=== PATIENT | female | born 1965 | race Caucasian/White ===

== ENCOUNTER 2021-08-30 13:10 | Emergency (ER) | payer SELFPAY ==
[2021-08-30] VITALS (17 sets, daily range): BP systolic 106–162; BP diastolic 79–111; PULSE 81–116; RESP 13–39; TEMP 37.1; O2SAT 96–100
--- NOTE | 2021-08-30 13:15 | RT.EKG_ITS ---
APPROVED REPORT Exam: Resting ECG Reason for Exam: back pain Patient Location: E HR:111 bpm ECG Measurements Heart Rate 111 AXIS AL 151 P 75 QRSd 82 QRS 83 QT 335 T 24 QTc 456 Conclusion Sinus tachycardia...rate> 99 Sinus. No STEMI. I have reviewed and interpreted ECG and agree with software generated interpretation.
--- NOTE | 2021-08-30 13:41 | W.ED.GENAD ---
Discharge Plan Disposition Patient Disposition: HOME Condition: Stable Discharge Details Clinical Impression: Pyelonephritis Primary Care Provider: Rosa Vasquez ED Provider: Janey Brown Home Meds and New Rx's Prescriptions: New cephalexin 500 mg capsule 500 mg PO BID 14 Days Qty: 28 RF: 0 Continued naproxen sodium [Aleve] 220 MG capsule 220 mg PO DAILY PRNRF: 0 Discharge Instructions Instructions: Urinary Tract Infection in Women (ED) Additional Instructions: Drink plenty of fluids and get plenty of rest. Alternate tylenol and motrin as needed and directed for pain. A prescription for the antibiotic Keflex has been sent electronically to your pharmacy. Take this as directed until finished. Follow-up with your primary care doctor in 1 week. Return to the emergency department with any worsening or new concerning symptoms. Discharge Data Discharge Physician: Janey Brown Medical Decision Making 55yo F who presents to the ED w/ a complaint of left mid and lower back pain worse with movement and vomiting and diarrhea starting today. EKG done on arrival due to patient's age and family history of DC which noted a rate of 111, sinus, no STEMI, nondiagnostic. Patient appears somewhat uncomfortable but nontoxic. She has reproducible left mid and lower back pain with movement and palpation. Lungs clear. No focal deficit Differential diagnosis includes UTI, pyelonephritis, muscle strain, pinched nerve. Presentation does not appear consistent with ACS or PE, but will obtain screening labs, D-dimer, urinalysis and give IV Decadron, Toradol, Valium, fluids and reassess. Labs reviewed. White blood cell count 6. Hemoglobin 15. D-dimer elevated at 1104. Electrolytes normal. Troponin negative. Urinalysis notes findings consistent with UTI. Presentation likely due to pyelonephritis. Will obtain CT chest abdomen pelvis. CT chest reviewed and notes questionable infiltrate left lingula but could be sequelae of previous infection. As she has no complaint of cough, chest pain or shortness of breath, does not appear consistent with pneumonia. CT abdomen findings consistent with pyelonephritis. Patient reassessed and she is pain-free and feels comfortable going home. A dose of Keflex was given here as well as for home and prescription sent electronically to her pharmacy. Advised to follow up with the primary care doctor for re-evaluation. Usual and customary return precautions given prior to discharge. Medical Records Medical records reviewed: Yes I reviewed the patient's medical records. Imaging Data Radiologic Study: Radiologist's impression: CTA Chest With Contrast Exam date and time: 08/30/2021 2:48 PM Age: 55 years old Clinical indication: Other: Lt sided upper back pain, UTI; Other: Lt sided upper back pain, R/O pyelo, pe, pna TECHNIQUE: Imaging protocol: Computed tomographic angiography of the chest with contrast. 3D rendering (Not supervised by radiologist): MIP and/or 3D reconstructed images were created by the technologist. Radiation optimization: All CT scans at this facility use at least one of these dose optimization techniques: automated exposure control; mA and/or kV adjustment per patient size (includes targeted exams where dose is matched to clinical indication); or iterative reconstruction. Contrast material: OMNIPAQUE 350; Contrast volume: 100 ml; Contrast route: INTRAVENOUS (IV); COMPARISON: No relevant prior studies available. FINDINGS: Pulmonary arteries: Normal. No pulmonary emboli. Aorta: No aortic aneurysm. No aortic dissection. Lungs: Lungs volumes are low. Confluent ground-glass density in the left lingular segment (image 374 series 9) suspicious of mild infiltrate. Mild peribronchial thickening. Mild mosaic like attenuation in the right upper lung lobe (image 184 series 12) and could be due to small airway reactive disease or bronchiolitis. Pleural spaces: No pneumothorax. No pleural effusion. Heart: No cardiomegaly. No pericardial effusion. Lymph nodes: . No enlarged lymph nodes. Bones/joints: . No acute fracture. Soft tissues: Unremarkable. IMPRESSION: 1. Ground-glass density in the left lingular segment consistent with mild infiltrate and could be sequela of viral or atypical infection. Additionally mild peribronchial thickening and mild mosaic like density in the right upper lung suspicious of small airway reactive process or bronchiolitis. 2. No pulmonary embolism or aortic dissection. CT Angiography Abdomen With Contrast Exam date and time: 08/30/2021 2:48 PM Age: 55 years old Clinical indication: Other: Lt sided upper back pain, UTI; Other: Lt sided upper back pain, R/O pyelo, pe, pna TECHNIQUE: Imaging protocol: Computed tomographic angiography images of the abdomen with intravenous contrast material. 3D rendering (Not supervised by radiologist): MIP and/or 3D reconstructed images were created by the technologist. Radiation optimization: All CT scans at this facility use at least one of these dose optimization techniques: automated exposure control; mA and/or kV adjustment per patient size (includes targeted exams where dose is matched to clinical indication); or iterative reconstruction. Contrast material: OMNIPAQUE 350; Contrast volume: 100 ml; Contrast route: INTRAVENOUS (IV); COMPARISON: No relevant prior studies available. FINDINGS: Lungs: Confluent ground-glass density in the left lingular segment suspicious of mild infiltrate. Mediastinum: Small hiatal hernia. Aorta: No aortic aneurysm. No aortic dissection. Celiac trunk and mesenteric arteries: No occlusion or significant stenosis. Renal arteries: No occlusion or significant stenosis. Liver: Normal. No mass. Gallbladder and bile ducts: Cholecystectomy. Pancreas: Normal. No ductal dilation. Spleen: Normal. No splenomegaly. Adrenals: Normal. No mass. Kidneys and ureters: 1.8 cm bulky nonobstructive nephrolithiasis in the right upper pole kidney. Enhancement of urothelium in the right proximal ureter and right renal pelvis. Trace hypoenhancing striated nephrogram in the right kidney (image 26 series 6) suspicious of trace pyelonephritis. Correlate with urinalysis to exclude urinary tract infection. Mild right hydroureter, likely due to mildly distended urinary bladder or less likely due to ureterovesical reflux. Stomach and bowel: Rectosigmoid and most of the colon are under distended. Mild fluid in the ascending, transverse colon. No significant mucosal thickening to suggest acute colitis. Small bowel within normal limits. Appendix: Appendix is unremarkable (image 48 series 4). Lymph nodes: No enlarged lymph nodes. Intraperitoneal space: No free air. No significant fluid collection. Bones/joints: Moderate loss of disc height at L5-S1. Mild posterior osteophyte spurring at L5-S1. Soft tissues: Small fat containing umbilical hernia. IMPRESSION: 1. Enhancement of urothelium in the right renal pelvis and proximal right ureter suspicious of urinary tract infection. Additionally, trace striated nephrogram in the right kidney suspicious of trace right pyelonephritis. Correlate with urinalysis. 2. Bulky nonobstructing nephrolithiasis of the right kidney. 3. Under distended large bowel with fluid in the proximal large bowel. Correlate with any diarrheal illness. No significant mucosal thickening or pericolonic stranding to suggest colitis. Lab Data Lab results reviewed: Yes I reviewed the patient's lab results. Labs: 08/30/21 14:35 Urine - Reflex from Ua Urine Culture - Pending Laboratory Tests Range/Units 08/30/21 08/30/21 08/30/21 13:35 13:35 13:53 WBC (4.4-10.8) 10^3/uL 6.21 RBC (3.93-5.22) 10^6/uL 5.02 Hgb (11.2-15.7) g/dL 15.9 H Hct (36.0-46.0) % 46.6 H MCV (80-95) fL 92.8 MCH (27.0-33.0) pg 31.7 MCHC (32.0-36.0) % 34.1 RDW (11.7-14.6) % 11.9 Plt Count (130-400) 10^3/uL 250 MPV (8.0-11.0) fL 9.3 Immature Gran % 0.3 Neutrophils % 71.4 Lymphocytes % 18.8 Monocytes % 5.8 Eosinophils % 3.5 Basophils % 0.2 Nucleated RBC % % 0 Absolute Neutrophils (1.2-6.7) 10^3/uL 4.43 Absolute Lymphocytes (1.2-3.4) 10^3/uL 1.17 L Absolute Monocytes (0.1-0.8) 10^3/uL 0.36 Absolute Eosinophils (0.0-0.7) 10^3/uL 0.22 Absolute Basophils (0.0-0.2) 10^3/uL 0.01 D-Dimer Cancelled Sodium (136-145) mmol/L 140 Potassium (3.5-5.1) mmol/L 3.9 Chloride (98-107) mmol/L 103 Carbon Dioxide (21.0-32.0) mmol/L 24.8 Anion Gap (3-11) mmol/L 12.2 H BUN (7-18) mg/dL 13 Creatinine (0.55-1.02) mg/dL 0.8 Estimated GFR/1.73 m2 (mL/min/1.73m2) >= 60.00 Glucose (74-106) mg/dL 94 Calcium (8.5-10.1) mg/dL 9.0 Magnesium (1.8-2.4) mg/dL 2.0 Total Bilirubin (0.2-1.0) mg/dL 0.3 AST (15-37) U/L 22 ALT (14-59) U/L 29 Alkaline Phosphatase (46-116) U/L 91 Troponin I (<0.06) ng/mL < 0.05 Total Protein (6.4-8.2) g/dL 8.0 Albumin (3.4-5.0) g/dL 4.2 Urine Color (Yellow) Urine Clarity (Clear) Urine pH (5-8) Ur Specific [place] (1.005-1.025) Urine Protein (Negative) mg/dL Urine Ketones (Negative) mg/dL Urine Blood (Negative) Urine Nitrite (Negative) Urine Bilirubin (Negative) Urine Urobilinogen (Up TO 0.2) EU/dL Ur Leukocyte Esterase (Negative) Urine RBC (0-2) HPF Urine WBC (0-5) HPF Ur Epithelial Cells (Negative) HPF Urine Crystals (Negative) HPF Urine Bacteria (Negative) HPF Urine Casts (Negative) LPF Urine Mucus (Negative) Ur Culture Indicated? Urine Glucose (Negative) mg/dL Range/Units 08/30/21 08/30/21 14:20 14:35 WBC (4.4-10.8) 10^3/uL RBC (3.93-5.22) 10^6/uL Hgb (11.2-15.7) g/dL Hct (36.0-46.0) % MCV (80-95) fL MCH (27.0-33.0) pg MCHC (32.0-36.0) % RDW (11.7-14.6) % Plt Count (130-400) 10^3/uL MPV (8.0-11.0) fL Immature Gran % Neutrophils % Lymphocytes % Monocytes % Eosinophils % Basophils % Nucleated RBC % % Absolute Neutrophils (1.2-6.7) 10^3/uL Absolute Lymphocytes (1.2-3.4) 10^3/uL Absolute Monocytes (0.1-0.8) 10^3/uL Absolute Eosinophils (0.0-0.7) 10^3/uL Absolute Basophils (0.0-0.2) 10^3/uL D-Dimer 1104 H Sodium (136-145) mmol/L Potassium (3.5-5.1) mmol/L Chloride (98-107) mmol/L Carbon Dioxide (21.0-32.0) mmol/L Anion Gap (3-11) mmol/L BUN (7-18) mg/dL Creatinine (0.55-1.02) mg/dL Estimated GFR/1.73 m2 (mL/min/1.73m2) Glucose (74-106) mg/dL Calcium (8.5-10.1) mg/dL Magnesium (1.8-2.4) mg/dL Total Bilirubin (0.2-1.0) mg/dL AST (15-37) U/L ALT (14-59) U/L Alkaline Phosphatase (46-116) U/L Troponin I (<0.06) ng/mL Total Protein (6.4-8.2) g/dL Albumin (3.4-5.0) g/dL Urine Color (Yellow) Yellow Urine Clarity (Clear) Cloudy Urine pH (5-8) 5.5 Ur Specific [place] (1.005-1.025) 1.025 Urine Protein (Negative) mg/dL 30 H Urine Ketones (Negative) mg/dL Negative Urine Blood (Negative) Small H Urine Nitrite (Negative) Positive H Urine Bilirubin (Negative) Negative Urine Urobilinogen (Up TO 0.2) EU/dL 0.2 Ur Leukocyte Esterase (Negative) Large H Urine RBC (0-2) HPF 3-5 H Urine WBC (0-5) HPF >50 H Ur Epithelial Cells (Negative) HPF Few Urine Crystals (Negative) HPF Negative Urine Bacteria (Negative) HPF Many Urine Casts (Negative) LPF 3-5 Fine Granular Urine Mucus (Negative) Trace Ur Culture Indicated? Yes Urine Glucose (Negative) mg/dL Negative ECG Data Attestation: I personally reviewed and interpreted this ECG (s) as follows: Interpretation: Rate of 111, sinus, no acute ST elevation or depression. MI 151. QRS 82. QTc 456. HPI General Mode of arrival: ambulatory. Date/Time Provider Initiated Documentation: 08/30/21 13:26. Limitations to Documentation: no limitations. Information obtained by: patient. HPI Narrative: Patient is a 55-year-old female who presents with left-sided back pain from her mid to her lower back that started while cutting a potato at home today. Patient states the pain is worse with movement of her upper body and head. She has not taken any medication for pain. She denies any specific injury but states she did move recently and has been moving heavy objects at times. She states she did vomit and had one episode of watery brown diarrhea today. She denies any chest pain, difficulty breathing, abdominal pain or urinary symptoms. She denies any fever, recent new medications or antibiotics. Related Data Home Medications Medication Instructions Recorded Confirmed naproxen sodium [Aleve] 220 mg PO DAILY PRN 08/01/16 08/30/21 cephalexin 500 mg PO BID 14 Days #28 cap 08/30/21 Previous Rx's Medication Instructions Recorded cephalexin 500 mg PO BID 14 Days #28 cap 08/30/21 Allergies Allergy/AdvReac Type Severity Reaction Status Date / Time oxycodone Allergy Itching Unverified 08/30/21 13:28 General Stated Complaint: Nk/Back Pain KEITH: 3 Review of Systems All systems reviewed & are unremarkable except as noted in HPI and below Constitutional Constitutional: Reports as per HPI, Denies chills and Denies fever(s) Eyes Eyes: Denies blurry vision ENT Ears, Nose, Mouth, and Throat: Denies dizziness, Denies sore throat and Denies throat swelling Cardiovascular Cardiovascular: Denies chest pain and Denies dyspnea Respiratory Respiratory: Denies cough and Denies dyspnea Gastrointestinal Gastrointestinal: Denies abdominal pain, Denies diarrhea and Denies vomiting Genitourinary Genitourinary: Denies hematuria and Denies dysuria Musculoskeletal Musculoskeletal: Reports back pain and Denies numbness Integumentary/Breasts Skin/Breast: Denies lesions and Denies rash Neurologic Neurologic: Denies dizziness, Denies localized weakness and Denies numbness Allergic/Immunologic Allergic/Immunologic: Denies throat swelling [facility] Active Problem List (Updated 08/30/21 @ 16:33 by Janey Brown DO) Pyelonephritis (Acute) Medical History (Updated 08/30/21 @ 16:33 by Janey Brown DO) No significant past medical history Surgical History (Updated 08/30/21 @ 13:59 by Janey Brown DO) Cholecystectomy 2004 Social History Smoking/Tobacco Use Status: Current-Occasional Smoking risk assessment performed?: Yes Alcohol Intake: current Alcohol Intake frequency: holidays/special occasions only Drug use: Never Substance use type: does not use Do you feel safe at home: Yes Do you feel safe in your relationship?: Yes Exam Const General: cooperative and no acute distress [facility] Head: normal to inspection Face and sinus: normal facial exam Eyes General: appearance normal, both eyes and all related structures EOM: EOM intact bilaterally Neck Neck: normal visual inspection and No submandibular swelling Lymphatic: no lymphadenopathy noted Chest Chest: normal inspection of the chest and no tenderness Resp Effort & Inspection: normal respiratory effort and able to speak in complete sentences Auscultation: clear to auscultation bilaterally Cardio Rate: regular rate Rhythm: regular rhythm GI Inspection: normal to inspection Palpation: soft, not firm, not rigid and nontender Auscultation: normal bowel sounds Back/Spine/Pelvis Thoracic/Lumbar Spine: No thoracic spinal tenderness and No lumbar spinal tenderness Back/spine/pelvis image: 1. Tenderness to palpation left paraspinal muscles within the thoracic and lumbar region. Skin General skin exam: no rashes or lesions noted Neuro General: patient alert, patient awake and patient oriented x3 Cognition: normal cognition Speech: speech normal Motor: muscle tone normal throughout Sensory Exam: no sensory deficits noted Extrem General: normal to inspection, full ROM, capillary refill normal, no calf tenderness bilaterally and no edema Psych Appearance: grossly normal Mental Status: mental status grossly normal Speech and Movement: speech and movement normal Affect: normal affect Course Vital Signs Vital signs: Vital Signs Pulse 99 H 08/30/21 13:16 Respiratory Rate 18 08/30/21 13:16 Blood Pressure 145/80 H 08/30/21 13:16 Pulse Oximetry 98 08/30/21 13:16 Pulse 116 H 08/30/21 13:32 Respiratory Rate 20 08/30/21 13:32 Respiratory Effort Non-Labored 08/30/21 13:29 Blood Pressure 141/101 H 08/30/21 13:32 Blood Pressure Position Sitting 08/30/21 13:16 Pulse Oximetry 97 08/30/21 13:32 Oxygen Delivery Method Room Air 08/30/21 13:32 Oxygen Flow Rate 0 08/30/21 13:32 Pain Level 9 08/30/21 13:29 PAWSS Have you Been Recently Intoxicated or Drunk Within the Last 30 days?: No Have you Ever Experienced Previous Episodes of Alcohol Withdrawal?: No Have you ever Experienced Withdrawal Seizures?: No Have you ever Experienced Delirium Tremens(DT)s?: No Have you ever undergone Alcohol Rehabilitation Treatment (i.e, inpt ot outpatient treatment programs)?: No Have you ever Experienced Blackouts?: No Have you ever Combined Alcohol with other Downers within the last 90 days?: No Have you ever Combined Alcohol with any other Substance of Abuse during the last 90 days?: No Positive Blood Alcohol level on Presentation? [PCS.BAL]: No Result: 0
[2021-08-30 13:46] LABS: Abs Immature Grans 0.02 10^3/uL (0.0-0.06); Absolute Basophil Count 0.01 10^3/uL (0.0-0.2); Absolute Eosinophil Count 0.22 10^3/uL (0.0-0.7); Absolute Lymphocyte Count 1.17 10^3/uL (1.2-3.4); Absolute Monocyte Count 0.36 10^3/uL (0.1-0.8); Absolute Neutrophil Count 4.43 10^3/uL (1.2-6.7); Basophils % 0.2; Eosinophils % 3.5; HCT 46.6 % (36.0-46.0); HGB 15.9 g/dL (11.2-15.7); Immature Grans % 0.3; Lymphocytes % 18.8; MCH 31.7 pg (27.0-33.0); MCHC 34.1 % (32.0-36.0); MCV 92.8 fL (80-95); MPV 9.3 fL (8.0-11.0); Monocytes % 5.8; Neutrophils % 71.4; Nucleated RBC 0 %; Platelet Count 250 10^3/uL (130-400); RBC 5.02 10^6/uL (3.93-5.22); RDW 11.9 % (11.7-14.6); RDW-SD 40.9 fL; WBC 6.21 10^3/uL (4.4-10.8)
[2021-08-30 14:03] LABS: ALT 29 U/L (14-59); AST 22 U/L (15-37); Albumin 4.2 g/dL (3.4-5.0); Alkaline Phosphatase 91 U/L (46-116); Anion Gap 12.2 mmol/L (3-11); BUN 13 mg/dL (7-18); Bilirubin, Total 0.3 mg/dL (0.2-1.0); CO2 24.8 mmol/L (21.0-32.0); CREATININE 0.8 mg/dL (0.55-1.02); Chloride 103 mmol/L (98-107); Glucose 94 mg/dL (74-106); Potassium 3.9 mmol/L (3.5-5.1); Sodium 140 mmol/L (136-145); Troponin I < 0.05 ng/mL (<0.06)
[2021-08-30] MEDS: Normal Saline 1,000 ML 1000 ML IV (14:16)
[2021-08-30] MEDS: Ketorolac 30 MG/ML VIAL IVP (14:16)
[2021-08-30] MEDS: predniSONE 20 MG TAB 60 MG PO (14:17)
[2021-08-30] MEDS: diazePAM 5 MG TAB PO (14:18)
--- NOTE | 2021-08-30 14:19 | NUR.NOTE ---
Pt medicated as ordered & IV NS initiated, pt reports pain unchanged at this time but is best if she is not moving. BP cuff repositioned & VS taken, pt spouse at bedside. Lab in to redraw d-dimer d/t specimen hemolized, continue to monitor.Nursing Note:
--- NOTE | 2021-08-30 14:35 | NUR.NOTE ---
Pt reports pain is easing up and Im starting to be able to relax. Urine specimen obtained per order & sent to lab.Nursing Note:
[2021-08-30 14:43] LABS: Bilirubin Negative (Negative); Blood Small (Negative); Clarity Cloudy (Clear); Glucose Negative (Negative); Ketones Negative (Negative); Leukocyte Esterase Large (Negative); Nitrite Positive (Negative); Specific Gravity 1.025 (1.005-1.025); Urobilinogen 0.2 EU/dL (Up TO 0.2); pH 5.5 (5-8)
--- NOTE | 2021-08-30 14:45 | DI.CT_ITS ---
Exam(s) CT CHEST PE ABD PELVIS W EXAM: CT CHEST PE ABD PELVIS W CLINICAL HISTORY: L sided upper back pain, uti. TECHNIQUE: Imaging Protocol: Axial CT angiography was performed with multi-slice acquisition and mu lti-planar and/or 3D reconstructions. CONTRAST MATERIAL: Intravenous: Omnipaque 350 Contrast volume:100 ml COMPARISON: No exams were available for comparison FINDINGS: CHEST: Pulmonary Arteries: No evidence of filling defect to suggest pulmonary emboli. Tracheobronchial tree: Patent where visualized. Mediastinum and Mandy: No dominant adenopathy or fluid collection. Pulmonary parenchyma: Expiratory changes. No consolidation or dominant measurable mass. Pleura: No effusion or pneumothorax. Heart: The heart is not dilated. Mild coronary artery calcifications are seen. Aorta: Thoracic aorta non-dilated. Bones: Normal. Small hiatal hernia. ABDOMEN: Liver: Normal density. No measurable mass. Portal, Superior Mesenteric, and Splenic Veins: Unremarkable. Gallbladder and Biliary Tract: Status post cholecystectomy. No radiodense calculus or dilation. Pancreas: Normal density, no abnormal calcifications or inflammatory process. Spleen: Normal. Adrenals: No masses seen. Kidneys: 2.1 centimeter stone upper pole right kidney. Mild right hydronephrosis. No obstructing st one seen. There is abnormal enhancement of the urothelium greater in the region of the renal pelvis and proximal ureter, consistent with infection.. Mild heterogeneous right renal parenchymal enhancem ent.. No perinephric collection. Left kidney unremarkable. No masses seen. Abdominal Aorta: Abdominal portion non-dilated. Bowel: No obstruction or bowel wall thickening. Appendix is unremarkable. Peritoneal Cavity: No ascites, collection or mesenteric inflammatory response. Lymph Nodes: Within normal limits. Bones: Unremarkable. Soft Tissues: Unremarkable. PELVIS: Bladder: Symmetric distention, no gross wall thickening. Reproductive Organs: Unremarkable as visualized. Lymph Nodes: Within normal limits. Bones: Mild degenerative disc changes at L5-S1. IMPRESSION: 1. No evidence of pulmonary embolism. Mildly increased bilateral diffuse lung density likely secondar y to expiratory changes.. 2. Large stone upper pole right kidney. Dilatation of right renal pelvis and proximal right ureter with enhancement of the urothelium consistent with infection. No ureteral calculus visible. RADIATION DOSE DELIVERED: 1,346.67mGy.cm Total DLP DATA REPOSITORY: All CT scans at this facility are submitted to the National Radiology Data Registry (NRDR) Dose Index Registry (DIR) with the [employer] [place] [employer] ([employer]). RADIATION OPTIMIZATION: All CT scans at this facility use at least one of these dose optimization te chniques: automated exposure control; mA and/or kV adjustment per patient size (includes targeted exa ms where dose is matched to clinical indication); or iterative reconstruction.
[2021-08-30 14:58] LABS: D-Dimer 1104 ng/mlFEU (<500)
[2021-08-30 15:07] LABS: Bacteria Many HPF (Negative); Casts 3-5 Fine Granular LPF (Negative); Crystals Negative HPF (Negative); Epithelial Cells Few HPF (Negative); Mucus Trace (Negative); WBC >50 HPF (0-5)
[2021-08-30 15:08] LABS: C & S Indicated? Yes
--- NOTE | 2021-08-30 15:14 | NUR.NOTE ---
Pt return from DI, monitor & IV fluids continue, reports feeling better, cont. to monitor.Nursing Note:
--- NOTE | 2021-08-30 15:17 | NUR.NOTE ---
Error in previous note, pt leaving to DI at this time, IV bolus complete & is feeling better, states I'm just ready to go home ursing Note:
[2021-08-30] MEDS: Omnipaque 350 MG/ML 100 ML BTL IV (15:18)
--- NOTE | 2021-08-30 15:49 | NUR.NOTE ---
Pt now return from DI, reports pain is gone, provider notified. Nursing Note:
--- NOTE | 2021-08-30 16:13 | DI.VRAD_ITS ---
PROCEDURE INFORMATION: Exam: CTA Chest With Contrast Exam date and time: 08/30/2021 2:48 PM Age: 55 years old Clinical indication: Other: Lt sided upper back pain, UTI; Other: Lt sided upper back pain, R/O pyelo, pe, pna TECHNIQUE: Imaging protocol: Computed tomographic angiography of the chest with contrast. 3D rendering (Not supervised by radiologist): MIP and/or 3D reconstructed images were created by the technologist. Radiation optimization: All CT scans at this facility use at least one of these dose optimization techniques: automated exposure control; mA and/or kV adjustment per patient size (includes targeted exams where dose is matched to clinical indication); or iterative reconstruction. Contrast material: OMNIPAQUE 350; Contrast volume: 100 ml; Contrast route: INTRAVENOUS (IV); COMPARISON: No relevant prior studies available. FINDINGS: Pulmonary arteries: Normal. No pulmonary emboli. Aorta: No aortic aneurysm. No aortic dissection. Lungs: Lungs volumes are low. Confluent ground-glass density in the left lingular segment (image 374 series 9) suspicious of mild infiltrate. Mild peribronchial thickening. Mild mosaic like attenuation in the right upper lung lobe (image 184 series 12) and could be due to small airway reactive disease or bronchiolitis. Pleural spaces: No pneumothorax. No pleural effusion. Heart: No cardiomegaly. No pericardial effusion. Lymph nodes: . No enlarged lymph nodes. Bones/joints: . No acute fracture. Soft tissues: Unremarkable. IMPRESSION: 1. Ground-glass density in the left lingular segment consistent with mild infiltrate and could be sequela of viral or atypical infection. Additionally mild peribronchial thickening and mild mosaic like density in the right upper lung suspicious of small airway reactive process or bronchiolitis. 2. No pulmonary embolism or aortic dissection. PROCEDURE INFORMATION: Exam: CT Angiography Abdomen With Contrast Exam date and time: 08/30/2021 2:48 PM Age: 55 years old Clinical indication: Other: Lt sided upper back pain, UTI; Other: Lt sided upper back pain, R/O pyelo, pe, pna TECHNIQUE: Imaging protocol: Computed tomographic angiography images of the abdomen with intravenous contrast material. 3D rendering (Not supervised by radiologist): MIP and/or 3D reconstructed images were created by the technologist. Radiation optimization: All CT scans at this facility use at least one of these dose optimization techniques: automated exposure control; mA and/or kV adjustment per patient size (includes targeted exams where dose is matched to clinical indication); or iterative reconstruction. Contrast material: OMNIPAQUE 350; Contrast volume: 100 ml; Contrast route: INTRAVENOUS (IV); COMPARISON: No relevant prior studies available. FINDINGS: Lungs: Confluent ground-glass density in the left lingular segment suspicious of mild infiltrate. Mediastinum: Small hiatal hernia. Aorta: No aortic aneurysm. No aortic dissection. Celiac trunk and mesenteric arteries: No occlusion or significant stenosis. Renal arteries: No occlusion or significant stenosis. Liver: Normal. No mass. Gallbladder and bile ducts: Cholecystectomy. Pancreas: Normal. No ductal dilation. Spleen: Normal. No splenomegaly. Adrenals: Normal. No mass. Kidneys and ureters: 1.8 cm bulky nonobstructive nephrolithiasis in the right upper pole kidney. Enhancement of urothelium in the right proximal ureter and right renal pelvis. Trace hypoenhancing striated nephrogram in the right kidney (image 26 series 6) suspicious of trace pyelonephritis. Correlate with urinalysis to exclude urinary tract infection. Mild right hydroureter, likely due to mildly distended urinary bladder or less likely due to ureterovesical reflux. Stomach and bowel: Rectosigmoid and most of the colon are under distended. Mild fluid in the ascending, transverse colon. No significant mucosal thickening to suggest acute colitis. Small bowel within normal limits. Appendix: Appendix is unremarkable (image 48 series 4). Lymph nodes: No enlarged lymph nodes. Intraperitoneal space: No free air. No significant fluid collection. Bones/joints: Moderate loss of disc height at L5-S1. Mild posterior osteophyte spurring at L5-S1. Soft tissues: Small fat containing umbilical hernia. IMPRESSION: 1. Enhancement of urothelium in the right renal pelvis and proximal right ureter suspicious of urinary tract infection. Additionally, trace striated nephrogram in the right kidney suspicious of trace right pyelonephritis. Correlate with urinalysis. 2. Bulky nonobstructing nephrolithiasis of the right kidney. 3. Under distended large bowel with fluid in the proximal large bowel. Correlate with any diarrheal illness. No significant mucosal thickening or pericolonic stranding to suggest colitis. Dictated and Authenticated by: Ramon Stephen MD. Ordering:LISANDRO Toth MD
[2021-08-30] MEDS: Cephalexin 500 MG CAP PO (16:39)
[2021-08-30] MEDS: Cephalexin 500 MG CAP, 2 CAPS/BTL PO (16:41)
== END 2021-08-30 16:47 | disposition home or self-care (01) ==
PROVIDERS: Emergency Provider Physician Assistant; PCP Nurse Practitioner Family
DX: N10 Acute pyelonephritis (principal); M54.50 Low back pain, unspecified; R11.2 Nausea with vomiting, unspecified; R19.7 Diarrhea, unspecified; M54.89 Other dorsalgia
CPT/HCPCS: 36415; 71275; 74177; 80053; 87077; 93005; 96361; 96374; 99285; 81003; 81015; 83735; 84484; 85025; 85379; 87086; 87186; 93010; 99284; J1885; J3490; J7512

== ENCOUNTER → 2022-02-12 00:33 | Outpatient (CLI) | payer SELFPAY | PROVIDERS: PCP Nurse Practitioner Family; Visit Provider Nurse Practitioner Family ==